=== PATIENT | female | born 1985 | race Caucasian/White ===

== ENCOUNTER → 2017-09-20 | Outpatient (CLI) | payer OTHER ==
[~2017-09-20] MED LIST: AMOX-559 PO; DOCU-416 PO; FLUT16SP19 NS; NORG1TAB95 PO; OCP PO; OXYC-865 PO
== END ==
LOC: LAB 09:42
PROVIDERS: ATTEND Obstetrics & Gynecology
DX: Z31.41 Encounter for fertility testing (principal); Z31.69 Encounter for other general counseling and advice on procreation
CPT/HCPCS: 36415; 82670; 83001; 83002; 83520; 84146; 84443

== ENCOUNTER → 2017-10-31 | Outpatient (CLI) | payer OTHER ==
[~2017-10-31] MED LIST changes: +PREN-127 PO
[2017-10-31 12:42] LABS: PLATELET COUNT, AUTOMATED 354 K/uL (150-450)
== END ==
LOC: LAB 11:38
PROVIDERS: ATTEND Obstetrics & Gynecology
DX: Z34.91 Encounter for supervision of normal pregnancy, unspecified, first trimester (principal); R82.79 Other abnormal findings on microbiological examination of urine
CPT/HCPCS: 36415; 81001; 85025; 86592; 86703; 86762; 86850; 86900; 86901; 87088; 87340

== ENCOUNTER → 2017-11-15 | Outpatient (CLI) | payer OTHER | LOC: LAB 08:50 | PROVIDERS: ATTEND Obstetrics & Gynecology | DX: Z34.01 Encounter for supervision of normal first pregnancy, first trimester (principal) | CPT/HCPCS: 87491; 87591 ==

== ENCOUNTER → 2018-02-13 | Outpatient (CLI) | payer OTHER | LOC: LAB 09:25 | PROVIDERS: ATTEND Nurse Practitioner Primary Care | DX: R35.0 Frequency of micturition (principal); R30.0 Dysuria | CPT/HCPCS: 81001 ==

== ENCOUNTER → 2018-02-13 | Outpatient (CLI) | payer OTHER ==
--- NOTE | 2018-02-13 11:50 | RADIOLOGY IMAGING REPORT ---
FACILITY: [facility] [place] PATIENT NAME: Dane Lepe : 1985 MR: [id number] V: [id number] EXAM DATE: ORDERING PHYSICIAN: ALVARO MISTRY TECHNOLOGIST: Location: [facility] [place] Patient: Dane Lepe : 1985 Visit/Account:[id number] Date of Sevice: 02/13/2018 [facility] OB ANATOMICAL SURVEY HISTORY: Anatomic survey COMPARISON: None. TECHNIQUE: Transabdominal imaging was performed for assessment of the fetus and maternal pelvic s tructures. Transvaginal imaging was not performed. FINDINGS: Intrauterine gestations: One. presentation: Cephalic. heart rate: 146 bpm. Amniotic fluid volume: Normal; HALINA 12.68 cm; MVP 4.56 cm. Placenta: Anterior. Uterus: Gravid, otherwise grossly unremarkable where visualized. Maternal adnexa/ovaries: Grossly unremarkable, ovaries not visualized. Cervix: Grossly long and closed. Gestational Parameters: BPD: 4.98 cm, 45th percentile HC: 18.77 cm, 37th percentile AC: 17.2 cm, 75th percentile FL: 3.65 cm, 57th percentile Average ultrasound age (AUA): 21 weeks/ five days Estimated age based on last menstrual period: 21 weeks/ one days Estimated weight (EFW): 457 grams +/- grams Anatomic Survey: Intracranial structures, 4-chamber heart, stomach, kidneys, urinary bladder, spine, are unremarkable. Two upper and two lower extremities visualized. The profile, palate, three-vessel cord and cord insertion were not well seen. The patient will be returning for follow-up imaging. IMPRESSION: Single viable fetus in cephalic presentation with an estimated gestational age by measurements of 21 weeks and five days. Estimated weight is 457 g Report Dictated By: Fabienne Díaz MD at 02/13/2018 11:08 AM Report E-Signed By: Fabienne Díaz MD at 02/13/2018 11:45 AM WSN:[email or web address]
== END ==
LOC: RAD 07:54
PROVIDERS: ATTEND Obstetrics & Gynecology
DX: Z34.02 Encounter for supervision of normal first pregnancy, second trimester (principal); Z3A.21 21 weeks gestation of pregnancy

== ENCOUNTER → 2018-04-03 | Outpatient (CLI) | payer OTHER ==
[~2018-04-03] MED LIST changes: +DIPH0.5D12 IM; +RHO(150015 IM
[2018-04-03 16:41] LABS: PLATELET COUNT, AUTOMATED 319 K/uL (150-450)
== END ==
LOC: LAB 08:16
PROVIDERS: ATTEND Student in an Organized Health Care Education/Training Program
DX: Z3A.28 28 weeks gestation of pregnancy (principal)
CPT/HCPCS: 36415; 82950; 85025

== ENCOUNTER → 2018-04-25 | Outpatient (CLI) | payer OTHER | LOC: LAB 16:59 | PROVIDERS: ATTEND Advanced Practice Midwife | DX: R10.2 Pelvic and perineal pain (principal); R82.79 Other abnormal findings on microbiological examination of urine | CPT/HCPCS: 81001; 87088 ==

== ENCOUNTER → 2018-05-02 | Outpatient (CLI) | payer OTHER | LOC: LAB 10:13 | PROVIDERS: ATTEND Obstetrics & Gynecology | DX: O16.3 Unspecified maternal hypertension, third trimester (principal) | CPT/HCPCS: 36415; 82040; 82247; 82310; 82374; 82435; 82565; 82570; 82947; 84075; 84132; 84155; 84156; 84295; 84450; 84460; 84520; 85027 ==

== ENCOUNTER → 2018-05-03 | Outpatient (CLI) | payer OTHER ==
[~2018-05-03] MED LIST changes: +BUTA1TAB14 PO
--- NOTE | 2018-05-03 14:52 | RADIOLOGY IMAGING REPORT ---
[place] [facility] [place] Dane Lepe : 1985 MR: [id number] V: [id number] EXAM DATE: ORDERING PHYSICIAN: ALVARO MISTRY TECHNOLOGIST: Location: [facility] Patient: Dane Lepe : 1985 Visit/Account:[id number] Date of Sevice: 05/03/2018 OB LIMITED History: Gestational hypertension ADDITIONAL HISTORY: none COMPARISON STUDIES: Comparison ultrasound 02/16/2019 FINDINGS: Intrauterine gestations: one presentation: Vertex heart rate: 140 bpm Amniotic fluid volume: HALINA 8.4 cm; MVP 3.1 cm. Volume is somewhat under stated as the largest pocket which measures 3.1 measures 5.8 centimeters in the transverse dimension. Placenta: Anterior. No evidence of previa. Maternal adnexa: negative Cervix: closed Anatomic Survey: survey was not performed. It was unremarkable on the prior study Biometrics: BPD: 8.1 cm corresponding to 32 weeks and five days. 48th Percentile HC: 29.9 cm corresponding to 33 weeks one day 30th Percentile AC: 20.8 cm corresponding to 32 weeks and six days 62nd Percentile FL: 6.4 cm corresponding to 33 weeks zero days 53rd Percentile Measurements are concordant or within normal variance with composite sonographic age of 33 weeks and zero days within normal variance of clinical dates.. Estimated weight (EFW): 2070 grams +/- 302 grams . 54th percentile based on clinical dates. IMPRESSION: Single living intrauterine gestation in vertex with biometric measurements and composite sonographic age within normal variance of previously established clinical dates. Normal interval growth. Borderline oligohydramnios Report Dictated By: Renan Aj MD at 05/03/2018 2:42 PM Report E-Signed By: Renan Aj MD at 05/03/2018 2:47 PM WSN:[id number]
== END ==
LOC: US 12:55
PROVIDERS: ATTEND Obstetrics & Gynecology
DX: O13.9 Gestational [pregnancy-induced] hypertension without significant proteinuria, unspecified trimester (principal); Z3A.33 33 weeks gestation of pregnancy
CPT/HCPCS: 76815

== ENCOUNTER → 2018-05-05 | Outpatient (CLI) | payer OTHER | LOC: LAB 09:19 | PROVIDERS: ATTEND Obstetrics & Gynecology | DX: O13.9 Gestational [pregnancy-induced] hypertension without significant proteinuria, unspecified trimester (principal) | CPT/HCPCS: 82570; 84156 ==

== ENCOUNTER 2018-05-07 08:15 | Observation (INO) | payer OTHER ==
[2018-05-07 09:00] VITALS: BP 138/88
--- NOTE | 2018-05-07 09:10 | History & Physical ---
History of Present Illness Estimated Gestational Age: 33.0 Chief Complaint Epigastric discomfort last night; decreased movement; brown discharge History of Present Illness 33yo at 33w0d presents to L&D for decreased movement, brownish discharge with wiping this morning and epigastric discomfort last night. She went to a baby shower for a friend last night and noted feeling "full" and epigastric discomfort last night. She woke up many times in the night with the same discomfort. However, this morning this pain was gone. She then went to the bathroom and noticed brown discharge with wiping. She also reports decreased movement today. She has eaten one piece of toast so far today. PNC by IMG. c/b GHTN, possible preeclampsia - she started her 24hr urine sample this morning. History Obstetrical History: Hx of 1 SAB Past Medical History: See PNR Allergies: Uncoded Allergies: SUN (Allergy, Mild, Rash, 04/09/16) Social History: No T/E/D. Family History: FH: diabetes mellitus Maternal Grandmother FH: heart disease Maternal Grandfather Hypertension in father FATHER Thyroid disease in mother MOTHER Med Rec Home Meds Active Scripts Butalb/Acetaminophen/Caff 50-325-40 Mg (FIORICET 50-325-40) 1 Each Tablet, 1-2 TAB PO Q4H PRN for HEADACHE, #10 TAB 1 Refill Prov:ALVARO MISTRY MD 05/05/18 Reported Medications Vits W-Ca,Fe,Fa(<1MG) ( VITAMINS) 1 Each Tablet, 1 EACH PO DAILY, TAB 10/31/17 Review of Systems Constitutional: No Fever Neurological: No Syncope Eyes: No Vision Change Cardiovascular: No Chest Pain Respiratory: No Shortness of Breath, No Cough Gastrointestinal: No Nausea, No Vomiting, No Diarrhea Genitourinary: No Dysuria Musculoskeletal: No Pain Psychiatric: No Depression, No Anxiety Exam General Exam Vital Signs VS reviewed General Apperance: Alert/Awake/No Acute Distress Neuro: No Gross deficits Eyes: Normal Extraocular Movement & Vison Cardiovascular: Regular Rate and Rhythm Respiratory: No Respiratory Distress, Clear to Auscultation Abdomen: Gravid - Non-Tender Musculoskeletal: No Weakness/Pain Extremities: No Cyanosis,Clubbing or Edema Integumentary: Skin Intact without Lesions or Rash Psychological: Alert & Oriented X3, Appropriate Mood & Affect Uterine Contractions(Q min): 0 Fetus Heart Tones: 140 Heart Tone Variabilty: Moderate FHT Accelerations: 10X10 FHT Decelerations: None FHT Category: I Assessment and Plan Problems: (1) Decreased movement affecting management of Assessment & Plan: NST is category I, but she has not yet had any 15x15 accels. Due to her symptoms, will order BPP to further evaluate. (2) Gestational hypertension affecting first Assessment & Plan: 33yo at 33w0d presents to L&D for decreased movement, brownish discharge with wiping this morning and epigastric discomfort last night. Her BP is borderline elevated today, but not actually elevated yet. Since the epigastric pain is resolved, we will not do labs at this time. If there is any uncertainty about BPP, will plan for steroids and inpatient monitoring until 24hr urine comes back. (3) 33 weeks gestation of Problem Qualifiers (1) Decreased movement affecting management of : Fetus number: single or unspecified fetus ALVARO MISTRY MD May 07, 2018 09:10
--- NOTE | 2018-05-07 10:17 | Labor Progress Note ---
Labor Subjective Progress Notes Subjective Pt is feeling about the same. She is feeling movement but perhaps still somewhat decreased. Labor Objective Vital Signs BP 160/95 Fetus FHT Category: I General Exam General Appearance: Alert/Awake/No Acute Distress Respiratory: No Respiratory Distress Abdomen: Gravid - Non-Tender Extremities: Edema (1+ bilateral) Integumentary: Skin Intact without Lesions or Rash Psychological: Alert & Oriented X3, Appropriate Mood & Affect Other Imaging Ultrasound: BPP 8/8 Assessment and Plan Problems: (1) Decreased movement affecting management of Assessment & Plan: NST is category I, BPP 8/8. She has had a few variable decelerations down to the 90-100 range. She also had a most recent BP of 160/95. Given her whole picture, I would like to gather more information. Will plan to keep her until tomorrow morning. Will order CBC/CMP. Will continue 24hr urine. Start steroids. Will monitor BP and NST Q4hrs or more as needed. (2) Gestational hypertension affecting first Assessment & Plan: As above. (3) 33 weeks gestation of Problem Qualifiers (1) Decreased movement affecting management of : Fetus number: single or unspecified fetus ALVARO MISTRY MD May 07, 2018 10:17
[2018-05-07] MEDS ORDERED: ACETA/BUTAL/CAFF 325/50/40 TAB PO PRN (10:20)
--- NOTE | 2018-05-07 10:54 | RADIOLOGY IMAGING REPORT ---
FACILITY: [facility] PATIENT NAME: Dane Lepe : 1985 MR: [id number] V: [id number] EXAM DATE: ORDERING PHYSICIAN: ALVARO MISTRY TECHNOLOGIST: Location: [facility] Patient: Dane Lepe : 1985 Visit/Account:[id number] Date of Sevice: 05/07/2018 US BIOPHYSICAL W/O NST Indication: 33 weeks gestation evaluate BPP. Procedure: There has been limited ultrasonic evaluation for determination of biophysical profile. Josué ss body movement, tone, and HALINA were all calculated according to standard protocol. Comparison studies: Obstetrical ultrasound May 03, 2018. Findings: The fetus is in a cephalic position. The placenta is anterior. There is no placenta previa. breathing movement: 2 out of a possible 2. Gross body movement: 2 out of a possible 2. tone: 2 out of a possible 2. HALINA: 2 out of a possible 2. The HALINA is 15.68. Maximum pocket length is 6.3. heart rate: 135 beats per minute. The total score is: 8 out of possible 8. IMPRESSION: 1. The HALINA is 15.68. The maximum pocket length is 6.3. 2. The biophysical profile is 8/8. 3. The heart rate is 135 bpm. 4. The fetus is in a cephalic position. Report Dictated By: Justus Washington MD at 05/07/2018 10:45 AM Report E-Signed By: Justus Washington MD at 05/07/2018 10:50 AM WSN:[id number]
[2018-05-07] MEDS: BETAMETHASONE/ACETATE 6 MG/1ML IM ONLY SCH (11:12)
[2018-05-07] MEDS: FAMOTIDINE 20 MG TAB PO PRN ×2 (11:12→21:52)
[2018-05-07 11:36] LABS: PLATELET COUNT, AUTOMATED 268 K/uL (150-450)
[2018-05-07] MEDS ORDERED: DOXYLAMINE SUCCINATE 25 MG TAB PO PRN (21:50)
--- NOTE | 2018-05-08 10:46 | Labor Progress Note ---
Labor Subjective Progress Notes Subjective Pt is feeling well this morning. She reports improved FM. No UCx, VB, LOF. No preeclampsia symptoms. Labor Objective Vital Signs Vital Signs Date Time Temp Pulse Resp B/P (MAP) Pulse Ox O2 Delivery O2 Flow Rate FiO2 05/07/18 09:00 98.8 82 20 138/88 (105) 96 Room Air Uterine Contractions(Q min): 0 Fetus FHT Category: I General Exam General Appearance: Alert/Awake/No Acute Distress Psychological: Alert & Oriented X3, Appropriate Mood & Affect Other Result Diagram: 05/07/18 1123 05/07/18 1123 Lab 24hr urine protein 432grams Assessment and Plan Problems: (1) Pre-eclampsia affecting , antepartum Assessment & Plan: Pt officially meets diagnosis of preeclampsia based on 24hr UA 432g protein. She received steroids on 05/07 and 05/08. Will be discharged with plan to return for NST as scheduled tomorrow and OB visit on 05/12/18. (2) Decreased movement affecting management of Assessment & Plan: Normal movement has resumed. BPP 10/26 yesterday. Reactive NSTs since that time. (3) 33 weeks gestation of Problem Qualifiers (1) Decreased movement affecting management of : Fetus number: single or unspecified fetus ALVARO MISTRY MD May 08, 2018 10:46
--- NOTE | 2018-05-08 10:48 | OB/GYN Discharge Summary ---
Discharge Summary Reason for Hosp/Final Diag: (1) Pre-eclampsia affecting , antepartum Hospital Course & Plan: Pt officially meets diagnosis of preeclampsia based on 24hr UA 432g protein. She received steroids on 05/07 and 05/08. Will be discharged with plan to return for NST as scheduled tomorrow and OB visit on 05/12/18. (2) Decreased movement affecting management of Hospital Course & Plan: Normal movement has resumed. BPP 10/26 yesterday. Reactive NSTs since that time. (3) 33 weeks gestation of Lates Vital Signs Vital Signs Date Time Temp Pulse Resp B/P (MAP) Pulse Ox O2 Delivery O2 Flow Rate FiO2 05/07/18 09:00 98.8 82 20 138/88 (105) 96 Room Air Weight (Pounds): 181 Result Diagram: 05/07/18 1123 05/07/18 1123 Condition: Improved Discharge: Home, Self Nursing Home Meds Active Scripts Butalb/Acetaminophen/Caff 50-325-40 Mg (FIORICET 50-325-40) 1 Each Tablet, 1-2 TAB PO Q4H PRN for HEADACHE, #10 TAB 1 Refill Prov:ALVARO MISTRY MD 05/05/18 Reported Medications Vits W-Ca,Fe,Fa(<1MG) ( VITAMINS) 1 Each Tablet, 1 EACH PO DAILY, TAB 10/31/17 Follow up Referrals: MEDICAL PSYCHOTHERAPIST - [place] @ [facility] with ALVARO MISTRY MD Discharge Diet: As Tolerates Discharge Activity: As Tolerates Problem Qualifiers (1) Decreased movement affecting management of : Fetus number: single or unspecified fetus ALVARO MISTRY MD May 08, 2018 10:48
[2018-05-08] MEDS: BETAMETHASONE/ACETATE 6 MG/1ML IM ONLY SCH (10:51)
== END 2018-05-08 10:46 | disposition home or self-care (01) ==
LOC: OB 08:15
PROVIDERS: ADMIT Obstetrics & Gynecology; ATTEND Obstetrics & Gynecology
DX: O36.8310 Maternal care for abnormalities of the fetal heart rate or rhythm, first trimester, not applicable or unspecified (principal); O13.3 Gestational [pregnancy-induced] hypertension without significant proteinuria, third trimester; Z3A.33 33 weeks gestation of pregnancy; O14.93 Unspecified pre-eclampsia, third trimester
CPT/HCPCS: 36415; 76819; 84156; 85025; G0378; G0379; J0702; 82040; 82247; 82310; 82374; 82435; 82565; 82947; 84075; 84132; 84155; 84295; 84450; 84460; 84520

== ENCOUNTER 2018-05-11 11:59 | Inpatient (IN) | payer OTHER ==
[~2018-05-11] VITALS: Ht 162.6 cm; Wt 82.6 kg
[~2018-05-11 11:59] MED LIST changes: -ACET-1966 PO; -CALC-515 PO; -DIPH-911 PO; -FAMO20TA28 PO
[2018-05-11] MEDS ORDERED: ceFAZolin(*) 2GM/D5W 50ML 50 ML IVPB PRN (12:04)
[2018-05-11] MEDS ORDERED: LR(*) 1000 ML BAG 1,000 ML IV SCH (12:04)
[2018-05-11] MEDS ORDERED: FAMOTIDINE(*) 20MG/50ML PREMIX 50 ML IVPB PRN (12:04)
[2018-05-11] MEDS ORDERED: METOCLOPRAMIDE 10 MG/2 ML SDV IVP PRN (12:05)
[2018-05-11] MEDS ORDERED: FLUSH 10 ML SYR IVP PRN (12:05)
[2018-05-11] MEDS ORDERED: LIDOCAINE/SOD BICARB 8.4% SYR SC PRN (12:05)
[2018-05-11 12:10] VITALS: BP 185/104; Ht 162.6 cm; Wt 82.6 kg
[2018-05-11] MEDS ORDERED: LIDOCAINE/SOD BICARB 8.4% SYR ONE (12:19)
[2018-05-11] MEDS ORDERED: MAGNESIUM SULF 20 GM/500 ML IV 500 ML IV SCH (12:21)
[2018-05-11] MEDS ORDERED: CALCIUM GLUC 10% 100 MG/ML VL IVP ONE (12:25)
[2018-05-11] MEDS ORDERED: MAGNESIUM SUL* 4 GM/100 ML BAG 100 ML IVPB ONE (12:25)
[2018-05-11] MEDS ORDERED: NIFEdipine 10 MG CAP PO ONE (12:27)
--- NOTE | 2018-05-11 12:28 | History & Physical ---
History of Present Illness Chief Complaint PPROM History of Present Illness 33-year-old at 33w4d presented to clinic with PPROM. She experienced her first gush of fluid at 0950hrs this morning. Since that time, she has had an increase in cramping and pelvic pressure. Her cramping is occurring every couple minutes and becoming more painful. She denies any bleeding with this. She denies preeclampsia symptoms. She reports good movement. Her care is by IMG. is complicated by preeclampsia without severe features and R negative status. She was recently administered betamethasone on 05/08 and 05/09. History Patient's Blood Type: A Negative Rubella Status: Immune Group B Strep Screen: Unknown Obstetrical History: Hx 1 SAB Past Medical History: PMH: IBS PSH: Dental implant, D&C 2006, fissure repair 2016 Allergies: Uncoded Allergies: SUN (Allergy, Mild, Rash, 04/09/16) Social History: No T/E/D. to [place]. Family History: FH: diabetes mellitus Maternal Grandmother FH: heart disease Maternal Grandfather Hypertension in father FATHER Thyroid disease in mother MOTHER Med Rec Home Meds Active Scripts Butalb/Acetaminophen/Caff 50-325-40 Mg (FIORICET 50-325-40) 1 Each Tablet, 1-2 TAB PO Q4H PRN for HEADACHE, #10 TAB 1 Refill Prov:ALVARO MISTRY MD 05/05/18 Reported Medications Vits W-Ca,Fe,Fa(<1MG) ( VITAMINS) 1 Each Tablet, 1 EACH PO DAILY, TAB 10/31/17 Review of Systems Constitutional: No Fever Neurological: No Syncope Eyes: No Vision Change Cardiovascular: No Chest Pain Respiratory: No Shortness of Breath, No Cough Gastrointestinal: No Nausea, No Vomiting, No Diarrhea Genitourinary: No Dysuria Musculoskeletal: No Pain Psychiatric: No Depression, No Anxiety Exam General Exam Vital Signs BP 185/104 General Apperance: Alert/Awake/No Acute Distress Neuro: No Gross deficits Eyes: Normal Extraocular Movement & Vison Cardiovascular: Regular Rate and Rhythm Respiratory: No Respiratory Distress, Clear to Auscultation Abdomen: Gravid - Non-Tender : Normal Musculoskeletal: No Weakness/Pain Extremities: No Cyanosis,Clubbing or Edema Integumentary: Skin Intact without Lesions or Rash Psychological: Alert & Oriented X3, Appropriate Mood & Affect Vaginal Discharge/Fluid?: Clear Fluid, Large Amount Cervical Dialation: 3 Cervical Effacement (%): 90 Cervical Consistency: Soft Cervical Position: Posterior Station: 0 Presentation: Vertex Uterine Contractions(Q min): 3 Uterine Contraction Strength: Mild UC Resting Tone: Soft Fetus Feeling Movement?: Yes FHT Category: I Assessment and Plan Problems: (1) premature rupture of membranes (PPROM) with unknown onset of labor Assessment & Plan: 33-year-old at 33w4d presented to clinic with PPROM. Given that she appears to be matilde regularly and her cervix is 3 cm, she is admitted directly. I discussed the plan with Dr. Chu with [facility]. Will plan magnesium for tocolysis and possible neuro protection. Will start ampicillin and erythromycin for antibiotics. If we are able to stop her contractions, she will be transferred. If not, we will anticipate transport of the after delivery. (2) Pre-eclampsia, severe, third trimester Assessment & Plan: She was diagnosed with preeclampsia at 33wks. she denies any symptoms. However, her 1st blood pressure is 185/104. This may be primarily due to her level of anxiety given the situation. However, this needs to be treated as real. The nurses are having a difficult time getting an IV started at this time, therefore she will be started with Procardia 10 mg by mouth. If this is unsuccessful, we will administer labetalol as soon as possible IV. She is already getting magnesium for neuro protection, but will continue for preeclampsia with severe features as well. (3) Rh negative status during Assessment & Plan: Rhophylac eval . (4) 33 weeks gestation of ALVARO MISTRY MD May 11, 2018 12:28
[2018-05-11 12:32] LABS: PLATELET COUNT, AUTOMATED 278 K/uL (150-450)
[2018-05-11] MEDS ORDERED: LABETALOL HCL 20 MG/4 ML SYR ONE ×2 (12:32→12:50)
[2018-05-11] MEDS ORDERED: AZITHROMYCIN 250 MG TAB PO ONE (12:50)
[2018-05-11] MEDS ORDERED: [UNRECOGNIZED DRUG - OTHER] IVPB SCH (13:00)
[2018-05-11] MEDS ORDERED: AMPICILLIN IVPB SCH (13:00)
[2018-05-11] MEDS ORDERED: NS 0.9% IVPB SCH ×2 (13:00)
[2018-05-11] MEDS ORDERED: AMPICILLIN 2 GM VIAL 2 GM in NS(*) 0.9% 100 ML ADDVANT BAG 100 ML IVPB SCH (13:00)
[2018-05-11] MEDS ORDERED: CALC-515 PO (14:00)
[2018-05-11] MEDS ORDERED: ACET-1966 PO (14:00)
[2018-05-11] MEDS ORDERED: FAMO20TA28 PO (14:00)
[2018-05-11] MEDS ORDERED: DIPH-911 PO (14:00)
[2018-05-11] MEDS ORDERED: BENZOCAINE 20% 60 ML BTL TP PRN (14:25)
[2018-05-11] MEDS ORDERED: LABETALOL HCL 20 MG/4 ML SYR IVP PRN (15:10)
[2018-05-11] MEDS ORDERED: hydrALAZINE HCL 20 MG/ML VIAL IVP PRN (15:10)
[2018-05-11] MEDS ORDERED: fentaNYL CITR 100 MCG/2 ML AMP IVP PRN (15:25)
[2018-05-11] MEDS ORDERED: fentaNYL CITR 100 MCG/2 ML AMP ONE (15:29)
[2018-05-11] MEDS ORDERED: ONDANSETRON 4 MG/2 ML VIAL IVP ONE (15:30)
[2018-05-11] MEDS ORDERED: LABETALOL HCL 100 MG/20ML VIAL IVP PRN (15:30)
== END 2018-05-11 15:50 | disposition short-term general hospital (02) | DRG 831 ==
LOC: OB 11:59
PROVIDERS: ADMIT Obstetrics & Gynecology; ATTEND Obstetrics & Gynecology
DX: O42.013 Preterm premature rupture of membranes, onset of labor within 24 hours of rupture, third trimester (principal); O14.13 Severe pre-eclampsia, third trimester; O36.0130 Maternal care for anti-D [Rh] antibodies, third trimester, not applicable or unspecified; Z3A.33 33 weeks gestation of pregnancy
CPT/HCPCS: 36415; 82040; 82247; 82310; 82374; 82435; 82565; 82947; 84075; 84132; 84155; 84295; 84450; 84460; 84520; 85025; 86850; 86870; 86900; 86901; 87081; J0290; J2405; J3010; J3475; J7050; J7120

== ENCOUNTER → 2018-05-11 | Outpatient (CLI) | payer OTHER ==
[~2018-05-11] MED LIST changes: +ACET-1966 PO; +CALC-515 PO; +DIPH-911 PO; +FAMO20TA28 PO
== END ==
LOC: LAB 11:32
PROVIDERS: ATTEND Obstetrics & Gynecology
DX: Z02.9 Encounter for administrative examinations, unspecified (principal)

== ENCOUNTER → 2018-05-11 | Outpatient (CLI) | payer OTHER ==
[2018-05-11 12:10] VITALS: BMI 31.2
== END ==
LOC: AMB 15:45
PROVIDERS: ATTEND Nurse Practitioner
DX: O60.03 Preterm labor without delivery, third trimester (principal); Z3A.33 33 weeks gestation of pregnancy
CPT/HCPCS: A0425; A0434

== ENCOUNTER → 2018-07-31 | Outpatient (CLI) | payer OTHER ==
[2018-05-11 12:10] VITALS: BMI 31.2
[~2018-07-31] MED LIST changes: +ACET-1966 PO; +CALC-515 PO; +DIPH-911 PO; -DIPH0.5D12 IM; +DIPH0.5S2 IM; +FAMO20TA28 PO; +NORE0.3516 PO
== END ==
LOC: LAB 13:16
PROVIDERS: ATTEND Surgery
DX: D22.39 Melanocytic nevi of other parts of face (principal); D22.5 Melanocytic nevi of trunk
CPT/HCPCS: 88305